=== PATIENT | female | born 1980 | race Caucasian/White ===

== ENCOUNTER → 2017-02-04 19:55 | Outpatient (CLI) | payer MEDICAID ==
[2016-04-03 13:45] VITALS: BMI 24.0
[~2017-02-04 19:55] MED LIST: DIFLUCAN150 MG PO; FERROUS GLUCON324 MG PO; HUMALOG 30100 UNITS/ SC; HYDROCODON-ACE1 EAC7 PO; LANTUS INSULIN10 ML SC; NEURONTIN 300300 MG PO; PAXIL20 MG PO; SYNTHROID100 MCG PO; VALIUM10 MG PO; VIBRAMYCIN 100100 MG PO
[2017-02-04 20:49] LABS: APPEARANCE CLEAR (CLEAR); BILIRUBIN NEGATIVE (NEGATIVE); COLOR YELLOW (YELLOW); GLUCOSE 1000 mg/dL (NEGATIVE); KETONE NEGATIVE (NEGATIVE); LEUKOCYTE ESTERASE NEGATIVE (NEGATIVE); NITRITE NEGATIVE (NEGATIVE); PROTEIN TRACE mg/dL (NEGATIVE); UROBILINOGEN NORMAL (NORMAL)
[2017-02-04 20:52] LABS: UDS - AMPHET NEGATIVE QUAL (NEGATIVE); UDS - BARB NEGATIVE QUAL (NEGATIVE); UDS - BENZO NEGATIVE QUAL (NEGATIVE); UDS - COCAINE NEGATIVE QUAL (NEGATIVE); UDS - METH NEGATIVE QUAL (NEGATIVE); UDS - OPIATE NEGATIVE QUAL (NEGATIVE); UDS - PCP NEGATIVE QUAL (NEGATIVE); UDS - THC NEGATIVE QUAL (NEGATIVE)
== END | disposition home or self-care (01) ==
LOC: D.LDO 19:55
PROVIDERS: Obstetrics & Gynecology
DX: O24.013 Pre-existing type 1 diabetes mellitus, in pregnancy, third trimester (principal); Z3A.31 31 weeks gestation of pregnancy; Z79.4 Long term (current) use of insulin

== ENCOUNTER 2017-02-13 21:47 | Outpatient (CLI) | payer SELFPAY ==
[2016-04-03 13:45] VITALS: BMI 24.0
== END 2017-02-14 00:06 | disposition home or self-care (01) ==
LOC: OBSVTIME → D.LDO 21:47 → D.LD 23:45 → D.LDO 23:49 → D.LD 23:49 → OBSVTIME 23:50 → D.LDO 02-14 00:06
DX: O36.8130 Decreased fetal movements, third trimester, not applicable or unspecified (principal); Z3A.31 31 weeks gestation of pregnancy

== ENCOUNTER → 2017-03-06 16:29 | Outpatient (CLI) | payer MEDICAID ==
[2016-04-03 13:45] VITALS: BMI 24.0
[~2017-03-06 16:29] MED LIST changes: +ACETAMINOPHEN325 MG PO; +NEURONTIN 400400 MG PO; +TYLENOL PM1 TAB PO; +VIVA DHA PRENAT1 CAP PO
[2017-03-06 17:29] LABS: APPEARANCE CLEAR (CLEAR); BILIRUBIN NEGATIVE (NEGATIVE); COLOR YELLOW (YELLOW); GLUCOSE 250 mg/dL (NEGATIVE); KETONE NEGATIVE (NEGATIVE); LEUKOCYTE ESTERASE NEGATIVE (NEGATIVE); NITRITE NEGATIVE (NEGATIVE); PROTEIN TRACE mg/dL (NEGATIVE); SPECIFIC GRAVITY 1.015 (1.005-1.020); UROBILINOGEN NORMAL (NORMAL)
[2017-03-06 19:26] LABS: BASOPHILS 0.1 % (0-2); EOSINOPHILS 0.4 % (0-7); HEMATOCRIT 32.3 % (36.0-48.0); HEMOGLOBIN 10.3 g/dL (12-16); IMMATURE GRANULOCYTES 0.3 % (0-5); MCH 27.3 pg (26.0-34.0); MCHC 31.9 g/dL (31.0-37.0); MCV 85.7 fL (80.0-100.0); MEAN PLATELET VOLUME 10.1 fL (7.4-10.4); MONOCYTES 6.1 % (2-11); NEUTROPHILS 72.1 % (40-80); RBC 3.77 10x6/uL (4.00-5.40); RDW 15.5 % (11.5-14.5); WBC 9.3 10x3/uL (4.8-10.8)
[2017-03-06 19:30] LABS: PLATELET COUNT 266 10x3/uL (130-400)
== END | disposition home or self-care (01) ==
LOC: D.LDO 16:29
PROVIDERS: Obstetrics & Gynecology
DX: O60.00 Preterm labor without delivery, unspecified trimester (principal)

== ENCOUNTER 2019-08-08 11:21 | Emergency (ER) | payer OTHER ==
[~2019-08-08] VITALS: Ht 152.4 cm; Wt 68.2 kg
[2019-08-08 11:28] VITALS: Ht 152.4 cm; Wt 68.2 kg
[2019-08-08 12:02] VITALS: BP 142/80
== END 2019-08-08 12:03 | disposition home or self-care (01) ==
LOC: D.ER 11:21
DX: F15.10 Other stimulant abuse, uncomplicated (principal)

== ENCOUNTER 2019-11-07 15:29 | Emergency (ER) | payer OTHER ==
[2019-11-07 15:29] VITALS: Ht 152.4 cm
[2019-11-07 17:07] VITALS: BP 127/88
== END 2019-11-07 17:08 | disposition home or self-care (01) ==
LOC: D.ER 15:29
DX: J11.1 Influenza due to unidentified influenza virus with other respiratory manifestations (principal); E11.40 Type 2 diabetes mellitus with diabetic neuropathy, unspecified; I10 Essential (primary) hypertension; Z86.73 Personal history of transient ischemic attack (TIA), and cerebral infarction without residual deficits; G51.0 Bell's palsy; E07.9 Disorder of thyroid, unspecified; Z79.4 Long term (current) use of insulin; J45.909 Unspecified asthma, uncomplicated

== ENCOUNTER 2021-03-29 20:47 | Emergency (ER) | payer OTHER ==
[~2021-03-29] VITALS: Ht 152.4 cm; Wt 68.2 kg
[2021-03-29 20:49] VITALS: Ht 152.4 cm; Wt 68.2 kg
[2021-03-30 01:00] VITALS: BP 167/91
[2021-03-31] MEDS ORDERED: CLEOCIN HCL300 MG PO (23:20)
== END 2021-03-30 02:09 | disposition home or self-care (01) ==
LOC: D.ER 20:47
DX: T78.40XA Allergy, unspecified, initial encounter (principal); X58.XXXA Exposure to other specified factors, initial encounter; E11.9 Type 2 diabetes mellitus without complications; I10 Essential (primary) hypertension; J45.909 Unspecified asthma, uncomplicated

== ENCOUNTER 2021-03-31 17:56 | Emergency (ER) | payer OTHER ==
[~2021-03-31] VITALS: Ht 152.4 cm; Wt 68.2 kg
[2021-03-31 18:08] VITALS: Ht 152.4 cm; Wt 68.2 kg
[2021-03-31 20:23] LABS: ANION GAP 9.8 mmol/L (8-16); CALCIUM 9.7 mg/dL (8.5-10.1); CREATININE - SERUM 0.9 mg/dL (0.6-1.3); POTASSIUM - SERUM 3.8 mmol/L (3.5-5.1)
[2021-03-31 20:29] LABS: BASOPHILS 0.2 % (0-2); EOSINOPHILS 1.4 % (0-7); HEMATOCRIT 28.7 % (36.0-48.0); HEMOGLOBIN 8.8 g/dL (12-16); LYMPHOCYTES 35.8 % (15-50); MCH 20.7 pg (26.0-34.0); MCHC 30.8 g/dL (31.0-37.0); MCV 67.2 fL (80.0-100.0); MEAN PLATELET VOLUME 7.4 fL (7.4-10.4); MONOCYTES 7.5 % (2-11); NEUTROPHILS 55.1 % (40-80); RBC 4.27 10x6/uL (4.00-5.40); RDW 19.2 % (11.5-14.5); WBC 6.4 10x3/uL (4.8-10.8)
[2021-03-31 20:30] LABS: PLATELET COUNT 351 10x3/uL (130-400)
[2021-03-31 20:35] LABS: HCG URINE NEGATIVE (NEGATIVE)
[2021-03-31 20:40] LABS: BACTERIA FEW HPF (<MOD); BILIRUBIN NEGATIVE (NEGATIVE); KETONE NEGATIVE mg/dL (< 1+); NITRITE POSITIVE (NEGATIVE); SQUAMOUS EPITHELIAL 4 HPF (0-4); UROBILINOGEN NORMAL mg/dL (< 2); WHITE CELLS - URINE 2 HPF (0-4)
[2021-03-31 20:41] LABS: UDS - AMPHET NEGATIVE QUAL (NEGATIVE); UDS - BARB NEGATIVE QUAL (NEGATIVE); UDS - BENZO NEGATIVE QUAL (NEGATIVE); UDS - COCAINE NEGATIVE QUAL (NEGATIVE); UDS - OPIATE NEGATIVE QUAL (NEGATIVE); UDS - PCP NEGATIVE QUAL (NEGATIVE); UDS - THC NEGATIVE QUAL (NEGATIVE)
[2021-03-31] MEDS ORDERED: CLEOCIN HCL300 MG PO (23:20)
[2021-04-01] VITALS: BP 124/81
== END 2021-04-01 | disposition home or self-care (01) ==
LOC: D.ER 17:56
PROVIDERS: Emergency Medicine
DX: R22.0 Localized swelling, mass and lump, head (principal); E11.9 Type 2 diabetes mellitus without complications; Z79.4 Long term (current) use of insulin; I10 Essential (primary) hypertension; R00.0 Tachycardia, unspecified; J45.909 Unspecified asthma, uncomplicated